=== PATIENT | female | born 1955 ===

== ENCOUNTER 2021-12-04 07:10 | Day surgery (SDC) | payer BC ==
[~2021-12-04 07:10] MED LIST: Lactated Ringers 1,000 ML IV SCH; Lidocaine 1% 5 ML VIAL ONE; Lidocaine 1%/Sod Bicarbonate in NS 8.4% 1 ML Syringe IDERM PRN; Midazolam 1 MG/ML 2 ML SDV ONE; Propofol 200 MG/20 ML SDV ONE; Sodium Chloride 0.9% 10 ML Syringe FLUSH PRN; Sodium Chloride 0.9% 10 ML Syringe FLUSH SCH; fentaNYL 100 MCG/2 ML SDV ONE
[2021-12-04] MEDS ORDERED: Succinylcholine/Sod PF 100 MG/5 ML SYRINGE IV ONE (08:18)
[2021-12-04] MEDS ORDERED: ceFAZolin 1 GM Vial ONE (08:18)
[2021-12-04] MEDS ORDERED: ePHEDrine 50 MG/ML SDV ONE (08:31)
[2021-12-04] MEDS: Bupivacaine 0.5%/EPINEPHrine 1:200,000 50 ML MDV ONE ×2 (08:36→08:47)
[2021-12-04] MEDS: Lidocaine 1% with EPINEPHrine 1:100,000 20 ML MDV ONE ×2 (08:36→08:49)
[2021-12-04] MEDS ORDERED: fentaNYL 100 MCG/2 ML SDV ONE (08:37)
[2021-12-04] MEDS ORDERED: Ondansetron 4 MG/2 ML SDV ONE (08:38)
[2021-12-04] MEDS ORDERED: Acetaminophen/oxyCODONE 325-5 MG Tab PO ONE (10:07)
[2021-12-04 17:11] VITALS: BP 117/69; PULSE 78
== END 2021-12-04 10:35 | disposition home or self-care (01) ==
LOC: JD.SDS 07:10
PROVIDERS: ATTEND Surgery
DX: K60.3 Anal fistula (principal); K64.9 Unspecified hemorrhoids; G47.00 Insomnia, unspecified; K21.9 Gastro-esophageal reflux disease without esophagitis; I10 Essential (primary) hypertension; E11.9 Type 2 diabetes mellitus without complications; Z98.890 Other specified postprocedural states; Z88.8 Allergy status to other drugs, medicaments and biological substances
CPT/HCPCS: 46270; A9270; J0330; J2250; J2405; J2704; J3010; J3490; J7120; J0690